=== PATIENT | male | born 1980 | race Caucasian/White ===

== ENCOUNTER 2019-12-05 15:05 | Emergency (ER) | payer MEDICAID ==
[2019-12-05] MEDS ORDERED: Lidocaine 1% 30 ML SDV INJECT ONE (15:24)
--- NOTE | 2019-12-05 15:56 | EDM.PDOC ---
ED HPI GENERAL MEDICAL PROBLEM - General Chief Complaint: Laceration Stated Complaint: CUT RING FINGER WITH SAW Time Seen by Provider: 12/05/19 15:20 Source of Information: Reports: Patient History Limitations: Reports: No Limitations - History of Present Illness INITIAL COMMENTS - FREE TEXT/NARRATIVE: Patient comes emergency department today with complaints of an injury to his left ring finger. Just prior to arrival the patient was at work when he was working with a skill saw when it jumped back on him hitting his distal left ring finger. His last tetanus immunization was about 5 years ago. He does complain of some numbness to the distal tip of his finger. No other injury. ED ROS GENERAL - Review of Systems Review Of Systems: Comprehensive ROS is negative, except as noted in HPI. ED EXAM, SKIN/RASH Exam: See Below Exam Limited By: No Limitations General Appearance: Alert, WD/WN, No Apparent Distress Respiratory/Chest: No Respiratory Distress Cardiovascular: Normal Peripheral Pulses Extremities: Normal Inspection (Exam is isolated to the left hand. On the pad surface of his left hand on the ring finger on the distal phalange he there is a laceration approximately 2 cm in length into the subcutaneous tissue. Patient is able to flex and extend at the DIP PIP MCP joint. Capillary refill is appropriate. This does not extend into the DIP joint or into the nail. Rest the left hand is atraumatic.), Normal Range of Motion, Normal Capillary Refill Neurological: Alert, Oriented ED SKIN PROCEDURES - Laceration/Wound Repair Left Distal Digit - 4th (Ring) Appearance: Subcutaneous, Stellate, Irregular, Mildly Contaminated (There was a amount of white soft material which is most likely be bored that he was cutting that was irrigated out and no other foreign debris was identified.) Distal NVT: Neuro & Vascular Intact, No Tendon Injury Anesthetic Type: Digital Local Anesthesia - Lidocaine (Xylocaine): 1% Plain Local Anesthetic Volume: 4cc Skin Prep: Chlorhexidine (Hibiciens), Saline Saline Irrigation (cc's): 100 Exploration/Debridement/Repair: Wound Explored, In a Bloodless Field, Explored to Base, Multiple Flaps Aligned Closed with: Sutures Lac/Wound length In cm: 2 Suture Size: 5-0 Suture Type: Nylon Sterile Dressing Applied: Provider Tetanus Status Addressed: Yes Complications: No Course - Orders/Labs/Meds Meds: Medications Discontinued Medications Generic Name Dose Route Start Last Admin Trade Name Freq PRN Reason Stop Dose Admin Lidocaine HCl 30 ml 12/05/19 15:24 12/05/19 15:27 Xylocaine-Mpf 1% INJECT 12/05/19 15:25 30 ml ONETIME ONE Administration - Re-Assessments/Exams Free Text/Narrative Re-Assessment/Exam: 12/05/19 16:07 Risk and benefits of a digital block was explained to the patient. Verbal consent was obtained 1% lidocaine without epinephrine was prepared. At the base of the left ring finger it was cleansed with iodine and appropriate time. Allowed to dry. I then injected 2 mils of 1% lidocaine without epinephrine on the medial and lateral aspect of the finger with good anesthesia. Please see procedure note for repair. Departure - Departure Time of Disposition: 15:54 Disposition: Home, Self-Care 01 Clinical Impression: Laceration of finger of left hand Qualifiers: Encounter type: initial encounter Finger: ring finger Damage to nail status: without damage Foreign body presence: with foreign body Qualified Code(s): S61.225A - Laceration with foreign body of left ring finger without damage to nail, initial encounter - Discharge Information Instructions: Laceration Care, Adult, [id number], Sutured Wound Care, [id number] Referrals: PCP,None [Primary Care Provider] - Forms: ED Department Discharge Additional Instructions: Cleanse the finger twice daily with soap and water. Bacitracin bandage until healed. Watch for signs of infection. Running water over the finger is fine no soaking the finger. Sutures out 7 to 10 days. Return to the emergency department new or worsening symptoms. Follow-up primary care to get your sutures out in 7 to 10 days sooner if concerns of infection.
== END 2019-12-05 16:04 | disposition home or self-care (01) ==
LOC: VM.ED 15:05 → SUPCPDRO 15:05 → VM.ED 16:04
DX: S61.225A Laceration with foreign body of left ring finger without damage to nail, initial encounter (principal); W27.0XXA Contact with workbench tool, initial encounter
CPT/HCPCS: 12001; 99282-25; 99283; J2001

== ENCOUNTER 2023-01-26 11:20 | Emergency (ER) | payer MEDICAID | END 2023-01-26 12:13 | disposition home or self-care (01) | LOC: VM.ED 11:20 | DX: Z02.83 Encounter for blood-alcohol and blood-drug test (principal) | CPT/HCPCS: 36415; 80307; 99283 ==